=== PATIENT | female | born 2005 ===

== ENCOUNTER 2025-04-03 16:33 | Emergency (ER) | payer BC, SELFPAY ==
[2025-04-03 16:45] VITALS: BP 124/73; PULSE 100; RESP 18; TEMP 36.8; O2SAT 98
--- NOTE | 2025-04-03 16:48 | ED_ITS ---
HPI - General Adult General Chief complaint: General Medical Stated complaint: dizziness Time Seen by Provider: 04/03/25 18:41 Source: patient and family (patient's mother) Mode of arrival: ambulatory Limitations: no limitations History of Present Illness ED Provider: Kaley Smith PA-C HPI narrative: Patient is a 19 year old assigned female at with no reported medical history presenting to the emergency department today with dizziness and an accidental medication overdose. Patient states that she accidentally took 2 Claritin D's within 24 hours of each other with her last dose being at midnight today. Patient states that she had an episode of lightheadedness / dizziness with a positional change and that's when she realized she took an extra dose of Claritin D. Patient states that her and her mother called poison control and they recommended that she come to the ER. Patient denies any complaints at this time. Related Data Allergies Allergy/AdvReac Type Severity Reaction Status Date / Time No Known Allergies Allergy Verified 04/03/25 16:48 Review of Systems 2 Constitutional: Constitutional: Reports as per HPI Eyes: Eyes: Reports as per HPI ENT: Reports as per HPI Cardiovascular: Cardiovascular: Reports as per HPI Respiratory: Respiratory: Reports as per HPI Gastrointestinal: Gastrointestinal: Reports as per HPI Genitourinary: Genitourinary: Reports as per HPI Musculoskeletal: Musculoskeletal: Reports as per HPI Integumentary/Breasts: Skin/Breast: Reports as per HPI Neurologic: Reports as per HPI Psychiatric: Psychiatric: Reports as per HPI Endocrine: Endocrine: Reports as per HPI Hematologic/Lymphatic: Hematologic/Lymphatic: Reports as per HPI Allergic/Immunologic: Allergic/Immunologic: Reports as per HPI [facility] Past Medical History Attestation statement: The following information was validated with the patient. (all information validated with the patient's mother) Source: old records reviewed, obtained from family (patient's mother provided additional history and confirmed the history provided by the patient. ) and nursing notes reviewed Social History Social History Advance Directives: No Advance Directives Information Provided: No Do you have a plan to hurt others: No Plan Physical Exam ED Vital Signs: Vital Signs - 24 hr 04/03/25 16:45 04/03/25 18:36 04/03/25 18:59 Temperature 98.3 F 98.3 F 98.3 F Pulse Rate 100 97 97 Respiratory Rate 18 16 16 Blood Pressure 124/73 118/71 118/71 Pulse Oximetry 98 98 98 Oxygen Delivery Method Room Air Room Air Room Air BMI result Body Mass Index 20.0 Const General: cooperative, no acute distress, alert and awake Nutritional Appearance: well nourished Orientation/consciousness: patient oriented x3 HENMT Head: Yes normal to inspection and Yes atraumatic Ears: hearing grossly normal bilaterally and external ears normal General nose exam: Normal external nose present, no nasal discharge noted and no epistaxis Face and sinus: Yes normal facial exam, No abrasion and No laceration Mouth: Normal oral and palatal mucosa present, no drooling and no muffled voice Eyes General: appearance normal, both eyes and all related structures Periorbital: periorbital findings normal Eyelids: Yes eyelids normal Conjunctivae: conjunctivae normal Pupils: Equal, round and reactive pupils present EOM: EOMs intact bilaterally Neck Neck: Yes normal visual inspection and Yes full ROM Resp Effort & Inspection: normal respiratory effort and able to speak in complete sentences Neuro General: patient oriented x3, moves all extremities and CN's II-XI intact bilaterally Cranial nerves: Yes Equal, round and reactive pupils present Cognition (Neuro): normal cognition Extrem General: Yes normal to inspection, Yes full ROM and Yes capillary refill normal Psych Appearance: grossly normal Mental Status: mental status grossly normal Affect: normal affect Attitude: cooperative Thought process: Normal thought process present Thought content: Normal thought content present Insight: Good insight present (Psych) Course Course Course Narrative: Rapid medical examination performed in triage by Kaley Smith PA-C. Patient is a 19 year old assigned female at presenting to the emergency department with dizziness upon positional changes and accidentally ingesting 2 claritan Ds in 24 hours. Detailed physical exam and review of systems are deferred to the sweater operator. EKG and labs ordered. Patient placed back in the waiting room pending room availability and results. Medical Decision Making Medical Decision Making MDM Narrative: Patient is a 19 year old assigned female at with no reported medical history presenting to the emergency department today with dizziness / lightheadedness and an accidental medication overdose. Patient's physical exam was unremarkable. Patient's blood work was unremarkable. Patient's EKG was unremarkable. I spoke with Poison Control who stated that if the patient's work up was unremarkable and her vital signs were stable, she could be discharged home. I explained my physical exam findings as well as all test results to the patient and the patient's mother. I answered all questions asked by the patient and the patient's mother. I stressed the importance of the patient taking her medication as directed (either prescribed or as the over the counter packaging recommends). I stressed the importance of the patient following up with her primary care provider. I stressed the importance of the patient returning to the emergency department immediately if her symptoms were to worsen or if she were to develop any dizziness, shortness of breath, difficulty breathing, chest pain, blurry vision, loss of vision, nausea, vomiting, abdominal pain, fever, chills, back pain, or any other complaints. Patient and the patient's mother verbalized agreement and understanding with this treatment plan and discharge. Differential Diagnosis Differential Diagnoses: The differential diagnosis associated with the presentation includes Lightheadedness Accidental overdose Admission/Observation Consideration of admission/observation: Escalation of care including admission/observation considered Patient would have been admitted to the hospital had her work up had any findings where hospital admission was appropriate and her clinical presentation warranted hospital admission. Consult Healthcare Provider Management of the patient was discussed with: Tester Equipment (I spoke with the poison control team as noted in the MDM Rationale portion of this note. ) Lab Data [facility] Lab Attestation statement: I reviewed the patient's lab results. My interpretation of these results are in the MDM Rationale portion of this note. 04/03/25 17:21 04/03/25 17:21 Labs: Lab Results 04/03/25 Range/Units 17:21 WBC 8.0 (4.8-10.8) X10*3/uL RBC 4.53 (4.20-5.50) X10*6/uL Hgb 13.3 (12.0-16.0) g/dl Hct 37.0 (37.0-47.0) % MCV 81.7 (80.0-98.0) fL MCH 29.4 (27.0-33.0) pg MCHC 35.9 H (31.0-35.0) g/dl RDW 12.2 (11.0-16.0) % Plt Count 265 (160-400) X10*3/uL MPV 9.3 L (9.4-12.3) fL Immature Gran % (Auto) 0.4 (0.0-0.4) % Neut % (Auto) 68.6 (45-73) % Lymph % (Auto) 19.9 L (20-40) % Clinch % (Auto) 9.4 (2-11) % Eos % (Auto) 1.2 (0-4) % Baso % (Auto) 0.5 (0-2) % Lymph # (Auto) 1.6 (1.2-4.9) X10*3/uL Clinch # (Auto) 0.8 (0.1-1.2) X10*3/uL Eos # (Auto) 0.1 (0.0-0.4) X10*3/uL Baso # (Auto) 0.0 (0.0-0.2) X10*3/uL Abs Immat Gran (auto) 0.03 (0.00-0.03) X10*3/uL Absolute Neuts (auto) 5.5 (2.0-8.3) x10*3/uL Absolute Nucleated RBC 0.000 (0.0-0.012) X10*3/uL Nucleated RBC % (auto) 0.0 (0.0-0.2) /100WBC Sodium 139 (135-145) mmol/L Potassium 3.5 (3.3-5.1) mmol/L Chloride 103 (96-108) mmol/L Carbon Dioxide 25 (22-29) mmol/L Anion Gap 15 (12-20) BUN 11 (9-16) mg/dL Creatinine 0.84 (0.5-1.4) mg/dL Estim Creat Clear Calc 88.2 Estimated GFR > 60 Random Glucose 106 (60-115) mg/dL Calcium 8.9 (8.4-10.2) mg/dL Magnesium 2.0 (1.6-2.6) mg/dL Total Bilirubin 0.6 (0.0-1.0) mg/dL AST 20 (5-31) U/L ALT 15 (0-31) U/L Alkaline Phosphatase 68 (39-117) U/L Troponin I High Sens < 2.7 (<3.5-17.0) ng/L Total Protein 6.9 (6.5-8.0) g/dL Albumin 4.4 (3.5-5.0) g/dL Beta HCG, Quant < 2 mIU/mL Independent Interpretation I performed an independent interpretation of an: EKG Interpretation: I independently interpreted this EKG and am in agreement with the below findings: Vent. Rate: 102 BPM Atrial Rate: 102 BPM P-R Int: 132 ms QRS Dur: 84 ms QT Int: 346 ms P-R-T Axes: 80 89 57 degrees QTcB Int: 450 ms Sinus tachycardia No previous ECGs available DD/ 1716 Independent Historian Clinical information obtained from an independent historian. History obtained from or confirmed by: Parent (patient's mother provided additional history and confirmed the history provided by the patient. ) Discharge Plan Discharge Clinical Impression: Accidental drug ingestion, Intermittent lightheadedness Patient Disposition: Home, Self-Care Instructions: Adult Overdose (ED) Additional Instructions: IF you are prescribed home medications and/or you are taking over the counter medications at home - it is very important you continue to do so as prescribed / directed unless told otherwise. Follow up with a primary care provider. Return to the emergency department immediately if your symptoms worsen or if you develop any numbness, tingling, dizziness, shortness of breath, difficulty breathing, chest pain, blurry vision, loss of vision, nausea, vomiting, abdominal pain, fever, chills, back pain, or any other complaints. L If you do not have a primary care provider - call any of the below numbers to establish and follow up with a primary care provider. [facility] Primary Care ([place]) [phone] [place] [address], [address] [facility] Primary Care ([address] [place]) [phone] [place] [address], [address] [facility], [address] [facility] Primary Care ([address] [place]) [phone] [place] [address], [address] [facility], [address] [facility] Primary Care ([place]) [phone] [place] [address], [facility] [address] [facility], [address] [facility] Family Medicine [phone] [address] [facility], [address] Please see the information below about our Patient Portal. If you are not yet enrolled in the [facility] Patient Portal, you will receive an enrollment email invitation following your visit to any [facility] setting. You may also self-enroll in the Patient Portal by visiting our website: [email or web address] The following information is required to access the Patient Portal: - Your [facility] Medical Record Number - Your personal home email address (must match what is in your electronic medical record, Registration staff can assist with this) - Name - Date of Capabilities of the Patient Portal: - Message some providers - View upcoming appointments - Access your health summary, medical history, and visit history - View current conditions and allergies - View procedure and lab results - View your medications, including guidelines, side effects, and precautions - Complete pre-appointment questionnaires requested by your provider - Ready summary reports of your office visits and procedures To access the Patient Portal Mobile Jerry, follow these directions: - Search payByMobileth in the Jerry Store or Meal Mantra Store - Download the Jerry - Search for [facility] - Enter your login/password Interventions: ED Discharge Assessment Last Done: 04/03/25 18:59 Discharge Date/Time: 04/03/25 18:59 Print Language: Kiswahili
--- NOTE | 2025-04-03 17:04 | ECG_ITS ---
Test Reason : ACCIDENTIAL INGESTION Blood Pressure : */* mmHG Vent. Rate : 102 BPM Atrial Rate : 102 BPM P-R Int : 132 ms QRS Dur : 84 ms QT Int : 346 ms P-R-T Axes : 80 89 57 degrees QTcB Int : 450 ms Sinus tachycardia Otherwise normal ECG No previous ECGs available Referred By: Kaley Smith Electronically Signed By: HEIDY OLSON MD
[2025-04-03 17:28] LABS: MANUAL DIFF FLAG NO
[2025-04-03 17:41] LABS: Hematocrit 37.0 % (37.0-47.0); Hemoglobin 13.3 g/dl (12.0-16.0); Imm Gran Abs Auto 0.03 X10*3/uL (0.00-0.03); Imm Gran Pct Auto 0.4 % (0.0-0.4); Lymphocytes Absolute Auto 1.6 X10*3/uL (1.2-4.9); Mean Corpuscular HGB Conc 35.9 g/dl (31.0-35.0); Mean Corpuscular Hemoglobin 29.4 pg (27.0-33.0); Mean Corpuscular Volume 81.7 fL (80.0-98.0); NRBC Abs Auto 0.000 X10*3/uL (0.0-0.012); NRBC Pct Auto 0.0 /100WBC (0.0-0.2); Platelet Count 265 X10*3/uL (160-400); Red Blood Count 4.53 X10*6/uL (4.20-5.50); White Blood Count 8.0 X10*3/uL (4.8-10.8)
[2025-04-03 17:48] LABS: Alanine Aminotransferase 15 U/L (0-31); Albumin Level 4.4 g/dL (3.5-5.0); Alkaline Phosphatase 68 U/L (39-117); Anion Gap 15 (12-20); Aspartate Amino Transferase 20 U/L (5-31); Blood Urea Nitrogen 11 mg/dL (9-16); Calcium 8.9 mg/dL (8.4-10.2); Carbon Dioxide 25 mmol/L (22-29); Chloride 103 mmol/L (96-108); Creatinine Clr Calc Pharmacy 88.2; Estimated Glomerular Filt Rate > 60; Magnesium 2.0 mg/dL (1.6-2.6); Potassium 3.5 mmol/L (3.3-5.1); Sodium 139 mmol/L (135-145); Total Protein 6.9 g/dL (6.5-8.0)
[2025-04-03 17:50] LABS: Troponin-I High Sensitivity < 2.7 ng/L (<3.5-17.0)
[2025-04-03 18:36] VITALS: BP 118/71; PULSE 97; RESP 16; TEMP 36.8; O2SAT 98
--- OUTSIDE RECORDS SUMMARY | 2025-04-03 18:41 | XMS_ITS | Clinical Summary ---
Author Organization [facility] Address [address] [place] [id number] Phone Care Team Providers Care Power Station Operator Name Role Phone Jeanna Branch MD Primary Care Provide r Allergies No known active allergies Social History Tobacco Use Types Packs/Day Years Used Date Smoking Tobacco: Never Assessed Education Answer Date Recorded Are you interested in more education? Not on ruchi e 11/17/2022 Are you concerned about learning? Not on file 11/17/2022 No 11/17/2022 No 11/17/2022 Digital Access Answer Date Recorded No 12/16/2022 No 12/16/2022 No 12/16/2022 Reliable internet access at home? Not on file 12/16/2022 Device with a working camera? Not on file Comments Unknown Sex and Gender Information Value Date Recorded Sex Assigned at Not on file Legal Sex Female 8:44 PM EDT Gender Identity Not on file Sexual Orientation Not on file Last Filed Vital Signs Vital Sign Reading Time Taken Comments Blood Pressure 110/84 01/24/2021 8:50 PM EDT Pulse 74 01/24/2021 8:49 PM EDT Temperature 36.8 C (98.2 F) 01/24/2021 8:49 PM EDT Respiratory Rate 20 01/24/2021 8:49 PM EDT Oxygen Saturation 96% 01/24/2021 8:49 PM EDT Inhaled Oxygen Concentration - - Weight 54.4 kg (120 lb) 01/24/2021 8:49 PM EDT Height 165.1 cm (5' 5 ) 01/24/2021 8:49 PM EDT Body Mass Index 19.97 01/24/2021 8:49 PM EDT Plan of Treatment Health Maintenance Due Date Last Done Comments DEPRESSION SCREENING 2015 SMOKING Hx and SMOKELESS TOBACCO SCREENING 11/07/2016 CHLAMYDIA SCREENING 2019 ADOLESCENT UNIVERSAL LIPID SCREENING 11/07/2020 HEPATITIS C SCREENING 11/07/2021 HIV ONE-TIME SCREENING (18-65 YEARS) 11/07/2021 PAP SMEAR 11/07/2024 INFLUENZA VACCINE (#1) 2025 , 06/24/2020, 06/22/2019, Additional history exists COVID-19 VACCINE ( season) 2025 11/23/2020, 11/23/2020, 11/02/2020 Adult Td,Tdap Booster 09/19/2025 09/20/2015 COMBINED DTaP,Tdap,Td (7 - Td or Tdap) 09/19/2025 09/20/2015, 12/26/2007, 01/30/2005, Additional history exists PNEUMOCOCCAL VACCINES (0-49 years) Aged Out 11/28/2004, 05/09/2004, 03/08/2004, Additional history exists No longer eligible based on patient's age to complete this topic HIB VACCINES Completed 01/30/2005, 04/21, 03/08/2004, Additional history exists MMR VACCINES Completed 04/22/2008, 01/30/2005 HPV VACCINES Completed 03/19/2016, 10/21, 09/20/2015 HEPATITIS A VACCINES Completed 06/22/2019, 12/19/19 19 MENINGOCOCCAL VACCINES (ACWY) Completed 02/01/2020, 09/20/2015 MENINGOCOCCAL VACCINES (B) Completed 03/01/2020, Medical Devices Not on file [place] [address] [place] [address] PPO EPO PPO EPO PPO EPO [facility]UE [facility] PPO EPO [facility]UE [facility] PPO EPO [facility]UE [facility] PPO EPO PPO EPO PPO EPO [facility] PPO EPO [facility] PPO EPO Care Teams Power Station Operator Relationship Specialty Start Date End Date Jeanna Branch MD [address] [place] [phone] PCP - General Pediatrics 02/02/21 Additional Source Comments The information contained in this document represents components of the legal health record. It is not the complete legal health record.[facility]
--- OUTSIDE RECORDS SUMMARY | 2025-04-03 18:41 | XMS_ITS | Clinical Summary ---
Author Organization [facility] Address [address] [place] [address] Care Team Providers Care Tongue Binder Name Role Phone Unavailable Primary Care Provider Unavailabl e Allergies No known active allergies Medications No known medications Social History Tobacco Use Types Packs/Day Years Used Date Smoking Tobacco: Never Smokeless Tobacco: Never Alcohol Use Standard Drinks/Week Comments No 0 (1 standard drink = 0.6 oz pur e alcohol) Comments Unknown Sex and Gender Information Value Date Recorded Sex Assigned at Not on file Legal Sex Female 11:52 AM EDT Gender Identity Not on file Sexual Orientation Not on file Last Filed Vital Signs Vital Sign Reading Time Taken Comments Blood Pressure 115/86 05/11/2022 9:21 PM EDT Pulse 82 05/11/2022 9:21 PM EDT Temperature 37.2 C (98.9 F) 05/11/2022 9:21 PM EDT Respiratory Rate 16 05/11/2022 9:21 PM EDT Oxygen Saturation 99% 05/11/2022 9:21 PM EDT Inhaled Oxygen Concentration - - Weight 56.7 kg (125 lb) 05/11/2022 9:21 PM EDT Height 167.6 cm (5' 6 ) 05/11/2022 9:21 PM EDT Body Mass Index 20.18 05/11/2022 9:21 PM EDT Plan of Treatment Health Maintenance Due Date Last Done Comments HIV Screening 2003 Hepatitis C Screening 2003 Pap Smear 2003 1 Week WCC 2003 1 Month WCC 2003 2 Month WCC 2003 4 Month WCC 03/01/2004 6 Month WCC 04/30/2004 9 Month WCC 07/29/2004 12 Month WCC 2004 15 Month WCC 01/25/2005 18 Month WCC 04/25/2005 24 Month WCC 10/22/2005 30 Month [facility] 02/25/2006 3 to 21 Year [facility] 11/07/2006 Well Child Check 11/07/2006 Chlamydia Screening 2019 Hepatitis B Vaccines (1 of 3 - 19+ 3-dose series) 11/07/2022 Alcohol/Substance Use Screening 07/22/2024 Depression Screening and Follow-Up 07/22/2024 Social Drivers of Health Teressa ual Screening 07/22/2024 COVID-19 Vaccine (4 - 2024-2 6 season) 2025 07/25/2021, 11/23/2020, 11/23/2020, Additional history exists Influenza Vaccine (#1) 2025 , 06/24/2020, 06/22/2019, Additional history exists DTaP,Tdap,and Td Vaccines (7 - Td or Tdap) 09/19/2025 09/20/2015, 12/26/2007, 01/30/2005, Additional history exists RSV Vaccine (60+ years old a nd patients) (1 - 1-dose 75+ series) 11/07/2078 Pneumococcal Vaccine: Pediat virgie (0-5 Years) and At-Risk Patients (6-50 Years) Completed 11/28/2004, 05/09/2004, 03/08/2004, Additional history exists MMR Vaccines Completed 04/22/2008, 01/30/2005 Varicella Vaccines Completed 04/22/2008, 11/28/2004 HPV Vaccines Completed 03/19/2016, 10/21, 09/20/2015 Meningococcal Vaccine Completed 02/01/2020, [address] [place] [address] [place]PO PPO/EPO
[2025-04-03 18:59] VITALS: BP 118/71; PULSE 97; RESP 16; TEMP 36.8; O2SAT 98
== END 2025-04-03 18:59 | disposition home or self-care (01) ==
PROVIDERS: Physician Assistant Medical; Emergency Provider Emergency Medicine
DX: T45.0X1A Poisoning by antiallergic and antiemetic drugs, accidental (unintentional), initial encounter (principal); R42 Dizziness and giddiness; Y92.9 Unspecified place or not applicable
CPT/HCPCS: 36415; 80053; 83735; 84484; 84702; 85025; 93005; 99284

== ENCOUNTER → 2025-04-03 17:04 | Outpatient (BNV) | payer BC, SELFPAY | PROVIDERS: Emergency Provider Emergency Medicine; Visit Provider Internal Medicine Cardiovascular Disease | DX: R00.0 Tachycardia, unspecified (principal) | CPT/HCPCS: 93010 ==